=== PATIENT | male | born 1990 | race Two or more races ===

== ENCOUNTER 2021-11-04 14:17 | Emergency (ER) | payer MEDICAID ==
[~2021-11-04] VITALS: Ht 177.8 cm; Wt 81.6 kg
[2021-11-04 14:33] VITALS: BP 114/72
--- NOTE | 2021-11-04 14:33 | NUR ---
BIBS C/O LOW BACK & NECK PAIN, HEADACHE, TINNITUS AND DIARRHEA. TO ER 19, HOOKED TO MONITOR, CLIVED TO [facility]. AWAITING MD ORTEZ
--- NOTE | 2021-11-04 14:40 | NUR ---
AT BEDSIDE FOR EVAL.
[2021-11-04] MEDS ORDERED: MAG355OR18 PO (14:54)
[2021-11-04] MEDS ORDERED: FAMO20TA8 PO (14:54)
[2021-11-04] MEDS ORDERED: DICY10CA37 PO (14:54)
--- NOTE | 2021-11-04 14:54 | NUR ---
URINE SEPCIMEN COLLECTED AND SENT TO LAB.
[2021-11-04] MEDS ORDERED: FAMOTIDINE (20 MG) 20 MG TABLET ONE (14:55)
[2021-11-04] MEDS ORDERED: MAG HYDROX/AL HYDROX/SIMETH 30 ML UDC ONE (14:55)
[2021-11-04] MEDS ORDERED: DICYCLOMINE HCL 10 MG CAPSULE PO ONE ×2 (14:55→15:00)
[2021-11-04] MEDS ORDERED: FAMOTIDINE (20 MG) 20 MG TABLET PO ONE (15:00)
[2021-11-04] MEDS ORDERED: MAG HYDROX/AL HYDROX/SIMETH 30 ML UDC PO ONE (15:00)
[2021-11-04 15:16] LABS: BILIRUBIN,URINE NEGATIVE (NEGATIVE); COLOR,URINE YELLOW (YELLOW); LEUKOCYTE ESTERASE ,URINE NEGATIVE (NEGATIVE); NITRITE, URINE NEGATIVE (NEGATIVE); PH,URINE 5.5 (5.0-8.0); PROTEIN,URINE NEGATIVE (NEGATIVE); UGLUCOSE NEGATIVE (NEGATIVE); UROBILINOGEN,URINE 0.2 EU/dL (0.2)
== END 2021-11-04 15:45 | disposition home or self-care (01) ==
LOC: ER 14:24
DX: R10.9 Unspecified abdominal pain (principal); R19.7 Diarrhea, unspecified; E86.0 Dehydration; Z79.899 Other long term (current) drug therapy
CPT/HCPCS: 82962-TC

== ENCOUNTER 2022-03-25 16:03 | Emergency (ER) | payer MEDICAID, OTHER ==
[~2022-03-25] VITALS: Ht 177.8 cm; Wt 81.6 kg
[~2022-03-25 16:03] MED LIST: DICY10CA37 PO; FAMO20TA8 PO; MAG355OR18 PO
[2022-03-25 16:43] VITALS: BP 123/76
--- NOTE | 2022-03-25 16:43 | NUR ---
BIBS C/O LOWER BACK PAIN SINCE SATURDAY, DENIES ANY INJURY OR TRAUMA. PAIN IS 8/10 ON PAIN SCALE. PT VITALS ARE WITHIN NORMAL LIMITS. AWAITING MD ORDERS.
[2022-03-25] MEDS ORDERED: CYCLOBENZAPRINE 10 MG TABLET PO ONE (17:00)
[2022-03-25] MEDS ORDERED: KETOROLAC TROMETHAMINE INJ 30 MG/ML VIAL IM ONE (17:00)
[2022-03-25] MEDS ORDERED: KETOROLAC TROMETHAMINE INJ 30 MG/ML VIAL ONE (17:05)
[2022-03-25] MEDS ORDERED: CYCLOBENZAPRINE 10 MG TABLET ONE (17:05)
[2022-03-25] MEDS ORDERED: CYCL5TAB PO (19:05)
[2022-03-25] MEDS ORDERED: KETO10TA2 PO (19:05)
--- NOTE | 2022-03-25 19:07 | NUR ---
Patient discharged to home in stable condition. Written and verbal after care instructions given. Patient verbalizes understanding of instruction.
== END 2022-03-25 19:06 | disposition home or self-care (01) ==
LOC: ER 16:15
DX: M51.26 Other intervertebral disc displacement, lumbar region (principal); Z79.899 Other long term (current) drug therapy
CPT/HCPCS: 99284; 72131; 96372; J1885

== ENCOUNTER 2022-09-26 20:22 | Emergency (ER) | payer OTHER ==
[~2022-09-26] VITALS: Ht 180.3 cm; Wt 90.7 kg
[~2022-09-26 20:22] MED LIST changes: +CYCL5TAB PO; +KETO10TA2 PO
--- NOTE | 2022-09-26 22:00 | NUR ---
BIBS C/O LOWER BACK PAIN RADIATING TO L LOWER LEG X TODAY 12/15 PAIN HX HERNIATED DISK
--- NOTE | 2022-09-26 22:10 | NUR ---
AT BEDSIDE FOR EVAL.
--- NOTE | 2022-09-26 22:22 | NUR ---
Patient discharged to home in stable condition. Written and verbal after care instructions given. Patient verbalizes understanding of instruction.
[2022-09-26 22:25] VITALS: BP 110/80
== END 2022-09-26 22:22 | disposition home or self-care (01) ==
LOC: ER 20:24
DX: M54.42 Lumbago with sciatica, left side (principal); Z79.899 Other long term (current) drug therapy